=== PATIENT | male | born 1960 | race Caucasian/White ===

== ENCOUNTER 2017-07-05 09:00 | Emergency (ER) | payer SELFPAY ==
[2017-07-05 09:21] LABS: Bilirubin Negative (Negative); Blood, Urine Negative (Negative); Clarity Clear (Clear); Glucose, Urine (Dipstick) Negative (Negative); Leukocyte Negative (Negative); Nitrite Negative (Negative); Protein, Urine (Dipstick) Negative (Neg-Trace); Urobilinogen 0.2 mg/dL (0.2-1.0); pH, Urine 5.5 (5.0-9.0)
[2017-07-05] MEDS ORDERED: Sodium Chloride 0.9% 0 ML ONE (09:30)
[2017-07-05] MEDS ORDERED: Lorazepam 1 MG TAB ONE (09:30)
[2017-07-05 09:34] LABS: #Lymphocytes 0.6 thou/uL (1.20-3.40); #Monocytes 0.4 thou/uL (0.11-0.59); #Neutrophils 3.3 thou/uL (1.40-6.50); %Basophils 0.7 % (0.0-1.0); %Eosinophils 0.9 % (0.0-10.0); %Lymphocytes 14.6 % (21.0-51.0); %Monocytes 8.2 % (0.0-10.0); %Neutrophils 75.5 % (42.0-75.0); Hemoglobin 13.8 g/dL (14.0-18.0); Mean Corpuscular Hemoglobin 30.5 pg (27.0-31.0); Mean Corpuscular Volume 92.7 fl (80.0-94.0); Mean Platelet Volume 8.3 fL (7.4-10.4); Platelet Count 186 thou/uL (130-400); RBC Distribution Width 14.1 % (11.5-14.5); Red Blood Cell (RBC) Count 4.51 mill/uL (4.70-6.10); White Blood Cell (WBC) Count 4.4 thou/uL (4.8-10.8)
[2017-07-05 09:53] LABS: CKMB 1.6 ng/mL (0-6.6); Troponin I Less than 0.010 ng/mL (< 0.028)
[2017-07-05 09:57] LABS: Acetaminophen Less than 6.0 mcg/mL (10.0-30.0); Alcohol Less than 10 mg/dL (Less than 10); Anion Gap 12 mmol/L (10-20); BUN (Urea Nitrogen) 11 mg/dL (8.4-25.7); Calc. Creatinine Clearance 0 mL/min (70-130); Calcium 9.3 mg/dL (7.8-10.44); Carbon Dioxide 22 mmol/L (22-29); Chloride 108 mmol/L (98-107); Estimated GFR-MDRD 82; Glucose 115 mg/dL (70-105); Potassium 4.2 mmol/L (3.5-5.1); Salicylate Less than 8.0 mg/dL (15.0-30.0); Sodium 138 mmol/L (136-145)
--- NOTE | 2017-07-05 10:05 | RAD ---
PORTABLE AP CHEST: Date: 07-05-17 History: Altered mental status. Vertigo for two months. No history of head injury. Comparison: None available. FINDINGS: The cardiac silhouette and pulmonary vasculature are within normal limits. Lungs are clear. Osseous s tructures are intact. IMPRESSION: No acute cardiopulmonary process. POS: [facility]
--- NOTE | 2017-07-05 10:13 | CT ---
CT OF THE BRAIN WITHOUT CONTRAST: INDICATION: Altered mental status and vertigo for 2 months without history of head injury. COMPARISON: None. FINDINGS: There is some streak artifact involving the temporal lobes bilaterally which slightly limits image de tail. No definite acute infarct, hemorrhage, or hydrocephalus is present. The septum pellucidum and third ventricle are midline. Mastoid air cells are clear. Paranasal sinuses are clear. There is a cortic al lucency involving the right superior orbital rim and right superior orbital roof which may reflect a vascular channel without evidence of remote fracture. IMPRESSION: 1. No acute intracranial abnormality. 2. Lucent cleft involving the right superior orbital rim and right superior orbital roof may reflect sequelae of vascular channel versus a remote right orbital floor and right orbital rim fracture. Re commend correlation with patient's history and clinical exam. POS: [facility]
== END 2017-07-05 10:29 | disposition home or self-care (01) ==
LOC: NAV ERS 09:00
DX: F41.9 Anxiety disorder, unspecified (principal); F17.290 Nicotine dependence, other tobacco product, uncomplicated
CPT/HCPCS: 70450; 71045; 80048; 80307; 81003; 82553; 84484; 85025; 93005; 94760; J7050